=== PATIENT | female | born 1965 | race Caucasian/White ===

== ENCOUNTER 2021-12-01 05:45 | Day surgery (SDC) | payer BC ==
[2021-11-29 14:13] VITALS: BMI 18.8
[2021-12-01] MEDS ORDERED: Bupivacaine PF 0.5% 30 ML VIAL ONE (06:15)
[2021-12-01] MEDS ORDERED: EPINEPHrine 1 MG/ML AMP ONE (06:15)
[2021-12-01] MEDS ORDERED: Ferric Subsulfate (ASTRINGYN) 8 GM VIAL ONE (06:16)
[2021-12-01] MEDS ORDERED: CEFAZOLIN 2 GM VIAL ONE (06:48)
[2021-12-01 06:49] LABS: Hemoglobin 12.2 g/dL (12.0-15.5); Mean Corpuscular HGB CONC 33.6 g/dL (32.0-36.0); Mean Corpuscular Hemoglobin 30.3 pg (27.0-33.0); Mean Corpuscular Volume 90.1 fl (81.6-98.3); Mean Platelet Volume 11.2 fl (7.4-10.4); Platelet Count 166 10x3/uL (150-450); RBC Distribution Width 13.5 % (11.5-14.5); Red Blood Cell (RBC) Count 4.03 10x6/uL (3.90-5.03); White Blood Cell (WBC) Count 4.5 10x3/uL (3.5-10.5)
[2021-12-01] MEDS ORDERED: Midazolam HCl 2 mg/2 ml Vial ONE (06:55)
[2021-12-01] MEDS ORDERED: Fentanyl 100 MCG/2 ML VIAL ONE ×2 (06:58→07:35)
[2021-12-01] MEDS ORDERED: Ondansetron PF 4 MG/2 ML Vial ONE (06:58)
[2021-12-01] MEDS ORDERED: Dexamethasone 20 MG/5 ML VIAL ONE (06:58)
[2021-12-01] MEDS ORDERED: PROPOFOL 20 ML ONE (06:58)
[2021-12-01] MEDS ORDERED: Methylene Blue 50 MG/10 ML AMPUL ONE (07:26)
[2021-12-01] MEDS ORDERED: PHENYLEPHRINE-NS 100 MCG/ML 10 ML SYRINGE ONE ×2 (07:39→09:31)
[2021-12-01] MEDS ORDERED: Potassium Iodide Solution 14 ML BOT ONE (07:44)
[2021-12-01] MEDS ORDERED: Ketorolac Tromethamine 30 MG/ML VIAL ONE (07:57)
[2021-12-01] MEDS ORDERED: Lidocaine 1% (PF) 30 ML VIAL ONE (09:31)
[2021-12-01] MEDS ORDERED: Succinylcholine 200 MG/10 ml SYRINGE FS ONE (09:31)
== END 2021-12-01 09:05 | disposition home or self-care (01) ==
LOC: CSHSDC 05:45
PROVIDERS: ATTEND Obstetrics & Gynecology
PROC: 0UBC7ZZ Excision of Cervix, Via Natural or Artificial Opening (ICD-10-PCS; principal; 2021-12-01)
DX: N87.0 Mild cervical dysplasia (principal); F41.9 Anxiety disorder, unspecified; F32.A Depression, unspecified; M81.0 Age-related osteoporosis without current pathological fracture; Z78.0 Asymptomatic menopausal state; Z85.3 Personal history of malignant neoplasm of breast; Z79.899 Other long term (current) drug therapy; Z98.890 Other specified postprocedural states
CPT/HCPCS: 85027; 88305; 88307; J0171; J1100; J1885; J2001; J2250; J2405; J2704; J3010; Q9968; S0020